=== PATIENT | female | born 1970 | race Caucasian/White ===

== ENCOUNTER 2017-11-30 03:29 | Emergency (ER) | payer MEDICAID ==
[2017-11-30 08:50] VITALS: BP 156/99
== END 2017-11-30 08:50 | disposition short-term general hospital (02) ==
LOC: ED 03:29
DX: S02.611A Fracture of condylar process of right mandible, initial encounter for closed fracture (principal); S42.402A Unspecified fracture of lower end of left humerus, initial encounter for closed fracture; W18.39XA Other fall on same level, initial encounter; Y93.89 Activity, other specified; Y92.89 Other specified places as the place of occurrence of the external cause; Y99.8 Other external cause status
CPT/HCPCS: 90715; J1885; J2001; J2270; J3010; Q0092